=== PATIENT | male | born 1960 | race Caucasian/White ===

== ENCOUNTER 2018-08-29 08:00 | Day surgery (SDC) | payer OTHER, SELFPAY ==
--- NOTE | 2018-08-22 13:48 | PM.PREOP ---
Pre-operative Note Interval Note History & Physical reviewed/Exam performed by Physician: Yes Changes to H&P: No
--- NOTE | 2018-08-22 13:48 | PM.OP.1 ---
Operative Date/Time/Diagnoses Date of procedure: 08/29/18 Time of procedure: 08:45 Procedure & Clinicians Procedure: Preoperative diagnoses: 1. Cataract surgery with higher risk due to previous vitrectomy. #. Signifcant nuclear sclerotic and cortical cataract . 2. Previous posterior vitrectomy for retinal detachment. Postoperative diagnoses: 1. Caratact surgery with placement of a posterior chamber intraocular lens implant. Surgeon: Eveline Ward MD Complications: none Specimen: None Implant: ZCBOO+16.0 Blood loss: None Anesthesia: Retrobulbar with monitored standby. Description of procedure: Dictated by: Eveline Ward MD Copy to: [facility] Post operative diagnoses: 1. Cataract removed with with placement of a posterior chamber intraocular lens. Procedure: Phacoemulsification with posterior chamber intraocular lens implant Surgeon: Eveline Ward MD Blood loss: None Anesthesia: Retrobulbar with monitored standby Description of procedure: Patient has presented with decreased vision due to cataract which is affecting activities of daily living. The patient wants surgery to improve vision. This cataract has advanced since recent retinal detachment surgery with posterior vitrectomy. He probably had a macula off detachment at that time. 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 He would like a distance implant. The patient was taken to the operating room and given IV sedation. A retrobulbar block consisting of 6 cc of 2% xylocaine without epinephrine mixed half and half with 0.5% Marcaine with 1 cc of hyaluronidase added is placed between the medial and lateral 1/3 of the inferior orbital rim. Lid akinesia is obtain with 1% xylocaine with epinephrine infiltrated along the lid margin. The eye is manually massaged for 30 sec, prepped using Betadine solution, and draped in the usual sterile fashion. Temporal approach was made, a 1 mm side-port incision was performed 90 degrees from the planned corneal wound. Phenylephrine 1.5% mixed with 1% xylocaine 0.2 cc was placed into the anterior chamber. A good reflex was present and no dye was used.. Viscoat followed by Pratibha was then placed. A 2.6 mm clear incision with a 2.6 mm blade was placed. A 360 degree capsulorrhexis style capsulotomy was then performed with a cystitome needle on a Healon. Hydrodelineation and hydrodissection were performed. the lens prolapsed through the anterior capsulorrhexis and was left above the capsule for phacoemulsification. The phacoemulsification unit is introduced, and sculpting used to groove the central lens. It is then removed in chopping mode. Epi nucleus is removed with epinuclear mode and irrigation aspiration was used to remove the peripheral cortex. The posterior capsule is polished. A small posterior plaque was left in position in case it was posterior polar. The intraocular lens is selected, inspected, power confirmed, and placed in the posterior chamber. The pupil was constricted with Miostat. The wound was stromally hydrated and tested for leaks, there was none and was left sutureless. Vigamox 0.1 cc was placed into the anterior chamber. Kenalog 0.2 cc was placed in the superior subconjunctival space. A drop of antibiotic and was placed and the eye was patched and shielded. The patient was stable and returned to the recovery room in excellent condition. Dictated by: Eveline Ward MD Copy to: [facility]
--- NOTE | 2018-08-22 13:51 | P.OP_ITS ---
Operative Date/Time/Diagnoses Date of procedure: 08/29/18 Time of procedure: 08:45 Procedure & Clinicians Procedure: Preoperative diagnoses: 1. Cataract surgery with higher risk due to previous vitrectomy. #. Signifcant nuclear sclerotic and cortical cataract . 2. Previous posterior vitrectomy for retinal detachment. Postoperative diagnoses: 1. Caratact surgery with placement of a posterior chamber intraocular lens implant. Surgeon: Eveline Ward MD Complications: none Specimen: None Implant: ZCBOO+16.0 Blood loss: None Anesthesia: Retrobulbar with monitored standby. Description of procedure: Dictated by: Eveline Ward MD Copy to: [facility] Post operative diagnoses: 1. Cataract removed with with placement of a posterior chamber intraocular lens. Procedure: Phacoemulsification with posterior chamber intraocular lens implant Surgeon: Eveline Ward MD Blood loss: None Anesthesia: Retrobulbar with monitored standby Description of procedure: Patient has presented with decreased vision due to cataract which is affecting activities of daily living. The patient wants surgery to improve vision. This cataract has advanced since recent retinal detachment surgery with posterior vitrectomy. He probably had a macula off detachment at that time. 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 He would like a distance implant. The patient was taken to the operating room and given IV sedation. A retrobulbar block consisting of 6 cc of 2% xylocaine without epinephrine mixed half and half with 0.5% Marcaine with 1 cc of hyaluronidase added is placed between the medial and lateral 1/3 of the inferior orbital rim. Lid akinesia is obtain with 1% xylocaine with epinephrine infiltrated along the lid margin. The eye is manually massaged for 30 sec, prepped using Betadine solution, and draped in the usual sterile fashion. Temporal approach was made, a 1 mm side-port incision was performed 90 degrees from the planned corneal wound. Phenylephrine 1.5% mixed with 1% xylocaine 0.2 cc was placed into the anterior chamber. A good reflex was present and no dye was used.. Viscoat followed by Pratibha was then placed. A 2.6 mm clear incision with a 2.6 mm blade was placed. A 360 degree capsulorrhexis style capsulotomy was then performed with a cystitome needle on a Healon. Hydrodelineation and hydrodissection were performed. the lens prolapsed through the anterior capsulo rrhexis and was left above the capsule for phacoemulsification. The phacoemulsification unit is introduced, and sculpting used to groove the central lens. It is then removed in chopping mode. Epi nucleus is removed with epinuclear mode and irrigation aspiration was used to remove the peripheral cortex. The posterior capsule is polished. A small posterior plaque was left in position in case it was posterior polar. The intraocular lens is selected, inspected, power confirmed, and placed in the posterior chamber. The pupil was constricted with Miostat. The wound was stromally hydrated and tested for leaks, there was none and was left sutureless. Vigamox 0.1 cc was placed into the anterior chamber. Kenalog 0.2 cc was placed in the superior subconjunctival space. A drop of antibiotic and was placed and the eye was patched and shielded. The patient was stable and returned to the recovery room in excellent condition. Dictated by: Eveline Ward MD Copy to: [facility]
[2018-08-29 08:20] VITALS: BP 130/80; PULSE 57; RESP 20; TEMP 36.2; O2SAT 96
[2018-08-29 08:25] VITALS: BMI 27.3
[2018-08-29] MEDS: PROPARACAINE 0.5% OPHTH SOL 2 DROPS EYE-OP (08:25)
[2018-08-29] MEDS: CATARACT EYE COMPOUND (10 DROPS/SYRINGE) 3 DROPS EYE-OP (08:30)
[2018-08-29] MEDS: HYALURONATE SODIUM 10 MG/ML SYRINGE INJ (10:05)
[2018-08-29] MEDS: LIDOCAINE 1% W/EPI INJ 20 ML INJ (10:05)
[2018-08-29] MEDS: BALANCED SALT IRRIG SOLN NO.2 15 ML IRR (10:05)
[2018-08-29] MEDS: CHONDROIDTIN/SOD HYALURONATE 1.05 ML SYRINGE INTRAOCULA (10:05)
[2018-08-29] MEDS: CARBACHOL 1.5 ML VIAL INJ (10:05)
[2018-08-29] MEDS: OFLOXACIN 0.3% OPHTH 5 ML 2 DROPS EYE-LEFT (10:06)
[2018-08-29] MEDS: MOXIFLOXACIN OPHTH DROPS 3 ML BOTTLE 2 DROPS INJ (10:06)
[2018-08-29] MEDS: NEOMYCIN/POLY/DEX OPHTH OINT 1 APPLIC EYE-LEFT (10:06)
[2018-08-29] MEDS: PHENYLEPHRINE/LIDOCAINE VIAL (OR) 0.2 ML EYE-OP (10:07)
[2018-08-29] MEDS: TRIAMCINOLONE 50 MG/5 ML VIAL INJ (10:07)
[2018-08-29] MEDS: BALANCED SALT IRRIG SOLN NO.2 500 ML, EPINEPHrine 1 MG IRR (10:08)
[2018-08-29] MEDS: LIDOCAINE 2% 4 ML, BUPIVACAINE 0.5% (PF) 4 ML, HYALURONIDASE 150 UNIT INJ (10:09)
[2018-08-29 10:44] VITALS: BP 127/81; PULSE 63; RESP 16; TEMP 36.7; O2SAT 97
== END 2018-08-29 10:50 | disposition home or self-care (01) ==
LOC: OR 08:03
PROVIDERS: Family Provider Family Medicine; PCP Family Medicine; Visit Provider Ophthalmology
DX: H25.812 Combined forms of age-related cataract, left eye (principal); E78.5 Hyperlipidemia, unspecified
CPT/HCPCS: J0171; J2704; J3301; J3470

== ENCOUNTER 2018-12-26 06:52 | Day surgery (SDC) | payer OTHER, SELFPAY ==
--- NOTE | 2018-12-22 18:39 | PM.PREOP ---
Pre-operative Note Interval Note History & Physical reviewed/Exam performed by Physician: Yes Changes to H&P: No
--- NOTE | 2018-12-22 18:41 | P.OP_ITS ---
Operative Date/Time/Diagnoses Date of procedure: 12/26/18 Time of procedure: 07:45 Procedure & Clinicians Procedure: Preoperative diagnoses: 1. Right nuclear sclerotic and cortical cataract. 2. Treated right retinal tear. Postoperative diagnoses: 1. Cataract removed by phacoemulsification with placement of posterior chamber intraocular lens. Procedure: Phacoemulsification with posterior chamber intraocular lens implant Surgeon: Eveline Ward MD Complications: None Specimen: None Implant: ZCBOO+17.5 Blood loss: None Anesthesia: Retrobulbar with monitored standby Description of procedure: Patient presents with a complaint of decreased vision due to significant nuclear sclerotic and cortical cataract which is affecting activities of daily living. 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 The patient was taken to the operating room and given IV sedation. A retrobulbar block consisting of 6 cc of 2% xylocaine without epinephrine mixed half and half with 0.5% Marcaine with 1 cc of hyaluronidase added is placed between the medial and lateral 1/3 of the inferior orbital rim. Lid akinesia is obtain with 1% xylocaine with epinephrine infiltrated along the lid margin. The eye is manually massaged for 30 sec, prepped using Betadine solution, and draped in the usual sterile fashion. Temporal approach was made, a 1 mm side-port incision was made 90? from the proposed clear corneal incision position. Phenylephrine 1.5% mixed with 1% xylocaine 0.2 cc was placed into the anterior chamber. Viscoat followed by Pratibha was then placed. A 2.6 mm clear incision with a 2.6 mm blade was placed. A 360 degree capsulorrhexis style capsulotomy was then performed with a cys titome needle on a Healon. Hydrodelineation and hydrodissection were performed. The phacoemulsification unit is introduced, and sculpting notice used to groove the central lens. It is then removed in chopping mode. Epi nucleus is removed with epinuclear mode and irrigation aspiration was used to remove the peripheral cortex. The posterior capsule is polished. The intraocular lens is selected, inspected, power confirmed, and placed in the posterior chamber. The pupil was constricted with Miostat.. The wound was stromally hydrated and tested for leaks, there was none and it was left sutureless. Vigamox 0.1 cc was placed into the anterior chamber. Kenalog 0.2 cc was placed in the superior subconjunctival space. A drop of antibiotic and was placed and the eye was patched and shielded. The patient was stable and returned to the recovery room in excellent condition. Dictated by: Eveline Ward MD Copy to: [facility]
[2018-12-26 07:07] VITALS: BP 113/71; PULSE 54; RESP 15; TEMP 36.4; O2SAT 95; BMI 28.0
[2018-12-26] MEDS: PROPARACAINE 0.5% OPHTH SOL 2 DROPS EYE-OP (07:20)
[2018-12-26] MEDS: CATARACT EYE COMPOUND (10 DROPS/SYRINGE) 3 DROPS EYE-OP (07:22)
--- NOTE | 2018-12-26 07:58 | SUR.OPER ---
Pt late in a room, medications were not available, 2nd day of PIXES live
[2018-12-26] MEDS: CARBACHOL 1.5 ML VIAL INJ (08:13)
[2018-12-26] MEDS: BALANCED SALT IRRIG SOLN NO.2 15 ML IRR (08:13)
[2018-12-26] MEDS: CHONDROIDTIN/SOD HYALURONATE 1.05 ML SYRINGE INTRAOCULA (08:13)
[2018-12-26] MEDS: HYALURONATE SODIUM 10 MG/ML SYRINGE INJ (08:14)
[2018-12-26] MEDS: LIDOCAINE 1% W/EPI INJ 20 ML INJ (08:14)
[2018-12-26] MEDS: MOXIFLOXACIN OPHTH DROPS 3 ML BOTTLE 2 DROPS INJ (08:14)
[2018-12-26] MEDS: NEOMYCIN/POLY/DEX OPHTH OINT 1 APPLIC EYE-RIGHT (08:15)
[2018-12-26] MEDS: PHENYLEPHRINE/LIDOCAINE VIAL (OR) 0.2 ML EYE-OP (08:16)
[2018-12-26] MEDS: TRIAMCINOLONE 50 MG/5 ML VIAL INJ (08:17)
[2018-12-26] MEDS: BALANCED SALT IRRIG SOLN NO.2 500 ML, EPINEPHrine 1 MG IRR (08:17)
[2018-12-26] MEDS: LIDOCAINE 2% 4 ML, BUPIVACAINE 0.5% (PF) 4 ML, HYALURONIDASE 150 UNIT INJ (08:18)
[2018-12-26 08:49] VITALS: BP 110/66; PULSE 49; RESP 16; TEMP 36.9; O2SAT 100
== END 2018-12-26 08:57 | disposition home or self-care (01) ==
LOC: OR 06:53
PROVIDERS: Family Provider Family Medicine; PCP Family Medicine; Visit Provider Ophthalmology
PROC: (CPT 66984; principal; 2018-12-26 07:45)
DX: H25.811 Combined forms of age-related cataract, right eye (principal)
CPT/HCPCS: 66984; J0171; J2704; J3301; J3470

== ENCOUNTER → 2020-02-07 08:11 | Outpatient (CLI) | payer OTHER, SELFPAY ==
[2020-02-10 09:43] LABS: COVID19 Sendout Not Detected (Not Detect)
== END ==
PROVIDERS: Family Provider Family Medicine; PCP Family Medicine; Visit Provider Physician Assistant
DX: Z11.59 Encounter for screening for other viral diseases (principal)
CPT/HCPCS: 87635

== ENCOUNTER 2020-02-10 14:10 | Day surgery (SDC) | payer OTHER, SELFPAY ==
--- NOTE | 2020-02-10 12:30 | P.HP_ITS ---
History of Present Illness History of Present Illness Date Patient Seen: 02/10/20 Chief complaint: SDC Narrative: 59 Years Old Male seen today for consideration of a screening colonoscopy. Last colonoscopy on 05/20/2010 was normal. There have been no lower GI symptoms suggesting disease such as change in bowel habits, bleeding, abdominal pain or anemia. There's been no family history of colon cancer or colon polyps. Overall health issues have been stable, including no major cardiac events for at least 6 weeks. Past Medical History: Retinal detachment with break, right, and left Chondrodermatitis nodularis helicis, right ELEVATED BP READING WITHOUT DX HYPERTENSION HYPERLIPIDEMIA Skin neoplasm, uncertain behavio Actinic keratoses Past Surgical History: Vasectomy Proliance Retina- Right eye lasersurgery- Horseshoe tear 05/2017 Left eye laser surgery- Detached retina 12/2017 Left Cataract (08/2018) Right Catarct (11/2018) Family History: CAD (mom 42) macular degeneration (Mom) Hyperlipidemia (Mom and Dad) Hypertension (Mom) [place] (Dad at 69) CABG non-hodgkins lymphoma (sister) Mom- May 2017- Complication from CHF Social History: Marital Status: Children: Callum (06/25/96), Rodriguez (02/19/93) 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 [employer] Household Members: Sarah Beth (59) Education: 17 years 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 Patient History Family & Social History Social History: household members spouse Meds Home Medications and Allergies Home Medications Medication Instructions Recorded Confirmed Type aspirin 81 mg PO DAILY #0 05/12/12 02/10/20 History atorvastatin [Lipitor] 40 mg PO HS #0 05/12/12 02/10/20 History Allergies Allergy/AdvReac Type Severity Reaction Status Date / Time No Known Drug Allergies Allergy Verified 02/10/20 14:25 Review of Systems Review of Systems ROS: Yes All systems reviewed with the patient and are negative except as otherwise documented Exam Narrative Exam Narrative: GENERAL: Alert and oriented, appearing stated age and in no acute distress. HEENT: Head normocephalic/atraumatic. Pupils equal, round, and reactive to light and accomodation. Extraocular muscles intact. Tympanic membranes clear. Nasal mucosa moist, septum midline. Oral mucosa moist, no lesions. Neck soft and supple, no lymphadenopathy. LUNGS: Clear to ausculation bilaterally, no wheezes, rhonchi or rales. CV: Normal S1 and S2 with regular rate and rhythm, no audible murmurs, rubs or gallops. ABDOMEN: Soft, non-tender, non-distended, no organomegaly. Positive bowel sounds. EXTREMITIES: No clubbing, cyanosis, or edema. NEURO: Cranial nerves II through XII grossly intact, no focal deficits. PSYCH: Alert and oriented x 3. SKIN: No concerning lesions. Assessment & Plan Assessment & Plan narrative: 1. Screening for colon cancer Plan for colonoscopy. The nature and character of the procedure as well as anticipated results were discussed. The possibility of not completing the procedure was also discussed. Possible complications including aspiration pneumonia, bleeding, perforation and reaction to medications either for sedation or preparation and missed lesions were discussed. Questions were answered and proceeding to the colonoscopy was elected. Informed consent signed. I sincerely appreciate the referral allowing me to participate in this patient's care. Please contact me with any questions or concerns.
--- NOTE | 2020-02-10 12:32 | PM.OP.ENDO ---
Operative Date/Time/Diagnoses Date of procedure: 02/10/20 Procedure Notes SCOAP/Timeout: 3:45 p.m. Procedure in detail: ENDOSCOPIST: Trinidad Duarte MD Sedation RN: Sandra Franklin RN Sedation start time: 3:46 p.m. Sedation end time: 4:04 p.m. PROCEDURE: Colonoscopy INDICATIONS: 1. Screening for colon cancer MEDICATION: Levsin 0.125 mg sublingual, incremental doses of Versed and fentanyl until appropriate level sedation achieved. ASA CLASS: 2 CECAL WITHDRAWAL TIME: 9 minutes COMPLICATIONS: None. EXTENT OF PROCEDURE: Cecum. QUALITY OF PREP: Good with portions of liquid stool. PROCEDURE: Prior to insertion of the colonoscope, a digital rectal examination was accomplished with circumferential palpation of the distal rectal mucosa without significant findings being noted. The high-definition pediatric colonoscope was passed into the rectum in the usual fashion and advanced over to the cecum without difficulty. The ileocecal valve, appendiceal stoma, and medial wall all could be inspected and no abnormalities were seen. ASCENDING COLON: As the colonoscope was withdrawn, care was taken to expose and inspect the haustral folds no abnormalities were seen. HEPATIC FLEXURE: Normal, no polyps, diverticula or other abnormalities. TRANSVERSE COLON: Normal, no polyps, diverticula or other abnormalities. DESCENDING COLON: Normal, no polyps, diverticula or other abnormalities. SIGMOID COLON: Normal, no polyps, diverticula or other abnormalities. RECTUM: Normal. J maneuver was produced. There was no significant perianal disease. The J maneuver was broken. The remainder of the rectum was inspected and there was no external hemorrhoid disease. The scope was withdrawn. IMPRESSION: 1. Normal colonoscopy PLAN: 1. Repeat colonoscopy in 10 years. The possibility of a missed lesion including a malignancy has been discussed with the patient previously. Potential alarm symptoms have been discussed and should be reported immediately.
[2020-02-10 14:31] VITALS: BMI 26.6
[2020-02-10 14:35] VITALS: BP 133/86; PULSE 66; RESP 16; TEMP 36.3; O2SAT 97
[2020-02-10] MEDS: HYOSCYAMINE 0.125 MG TABLET PO (14:44)
[2020-02-10] MEDS: LACTATED RINGERS 1,000 ML 200 ML IV (14:44)
[2020-02-10] MEDS: MIDAZOLAM 5 MG/5 ML VIAL IV (15:51)
[2020-02-10] MEDS: fentaNYL 250 MCG/5 ML INJ IV (15:53)
[2020-02-10 16:09] VITALS: BP 134/74; PULSE 57; RESP 11; TEMP 37.2; O2SAT 96
[2020-02-10 16:13] VITALS: BP 131/80; PULSE 72; RESP 20; TEMP 36.7; O2SAT 96
== END 2020-02-10 16:36 | disposition home or self-care (01) ==
PROVIDERS: Family Provider Family Medicine; PCP Family Medicine; Referring Provider Family Medicine; Visit Provider Student in an Organized Health Care Education/Training Program
PROC: 0DJD8ZZ Inspection of Lower Intestinal Tract, Via Natural or Artificial Opening Endoscopic (ICD-10-PCS; CPT 45378; principal; 2020-02-10 15:15)
DX: Z12.11 Encounter for screening for malignant neoplasm of colon (principal)
CPT/HCPCS: 45378; J2250; J3010

== ENCOUNTER → 2022-09-29 09:12 | Outpatient (CLI) | payer OTHER, SELFPAY ==
--- NOTE | 2022-09-29 | DI.CT.S_ITS ---
PROCEDURE: CT KIDNEY URETER BLADDER (KUB) INDICATIONS: Asymptomatic microscopic hematuria TECHNIQUE: Axial sections were acquired from the lung bases to the pubic symphysis. Coronal and sagittal reformats were performed. For radiation dose reduction, the following was used: automated exposure control, adjustment of mA and/or kV according to patient size. COMPARISON: None. FINDINGS: Image quality: Excellent. Lung bases: Unremarkable. Heart: No significant findings. URINARY: Right Kidney: No stones or hydronephrosis. Right Ureter: No hydroureter. Left Kidney: No stones or hydronephrosis. Left Ureter: No hydroureter. Bladder: Diffuse thickening of the bladder wall. No stones. ABDOMEN: Liver: Unremarkable. Gallbladder: Unremarkable. Biliary ducts: Unremarkable. Pancreas: Unremarkable. Spleen: Unremarkable. Adrenal Glands: Unremarkable. Stomach and Bowel: Stomach, small bowel loops, and colon are unremarkable. Peritoneum: No abnormal intraperitoneal fluid. No free air. Ventral Wall: No hernia. Abdominal Nodes: No enlarged retroperitoneal or mesenteric lymph nodes. Vessels: Aorta and inferior vena cava are normal in size. PELVIS: Pelvic Organs: Unremarkable. Pelvic Nodes: Unremarkable. Miscellaneous: No inguinal hernias are seen. Bones: Unremarkable. IMPRESSION: No renal stones or hydronephrosis. Bladder is decompressed, limiting evaluation. Dictated by: Humberto Carballo M.D. on 09/29/2022 at 10:02 Approved by: Humberto Carballo M.D. on 09/29/2022 at 10:06
== END ==
PROVIDERS: Family Provider Family Medicine; PCP Family Medicine; Referring Provider Family Medicine; Visit Provider Family Medicine
DX: R31.21 Asymptomatic microscopic hematuria (principal)
CPT/HCPCS: 74176

== ENCOUNTER → 2023-03-08 10:01 | Outpatient (CLI) | payer OTHER, SELFPAY ==
--- NOTE | 2023-03-08 10:08 | DI.CT.S_ITS ---
PROCEDURE: CT IVP A/P W/WO INDICATIONS: Other microscopic hematuria TECHNIQUE: Optional 5 mm thick noncontrast images acquired from the diaphragm to the symphysis pubis. After the administration of intravenous contrast, 5 mm thick images acquired from the diaphragm to the symphysis pubis after a 10-minute delay. 2 mm thick coronal and sagittal reformats were then performed of the kidneys and ureters. For radiation dose reduction, the following was used: automated exposure control, adjustment of mA and/or kV according to patient size. COMPARISON: [facility], CT, CT KIDNEY URETER BLADDER (KUB), 09/29/2022, 9:21. FINDINGS: Image quality: Excellent. Lung bases: Lung bases are clear. Heart size is normal. Urinary system: Both kidneys are normal in size, without hydronephrosis or nephrolithiasis on pre-contrast images. No perinephric fat stranding. There is normal bilateral renal enhancement. Renal calyces appear normal in morphology when filled with contrast. 2.2 cm partially exophytic right lower pole cyst. Opacified portions of both ureters demonstrate normal caliber. The bladder is under distended. The wall thickness is appropriate given under distension. The prostate gland is enlarged and indents on the base of bladder. No visible intraluminal or bladder wall abnormalities. Other solid organs: Liver is normal in size and enhancement. Gallbladder appears normal . Biliary system is non dilated. Pancreas enhances normally. Spleen is normal in size and enhancement. No adrenal nodules. Peritoneum and bowel: Stomach and small bowel loops are normal caliber. Normal appendix. Occasional colonic diverticulosis. No free fluid or free air. Nodes and vessels: No retroperitoneal or mesenteric adenopathy by size criteria. Aorta and inferior vena cava are normal in size. Abdominal wall: No ventral hernias. Pelvis: No suspicious mass, adenopathy, or inguinal hernia. Vasectomy changes. Bones: No suspicious bony lesions. No vertebral body compression fractures. IMPRESSION: 1. Prostatomegaly. 2. No urinary calcifications, soft tissue masses, or evidence of obstructive uropathy. 3. Incidental note of simple right renal cyst. Dictated by: Inessa Butler M.D. on 03/08/2023 at 14:26 Approved by: Inessa Butler M.D. on 03/08/2023 at 14:34
== END ==
PROVIDERS: Family Provider Family Medicine; PCP Family Medicine; Referring Provider Family Medicine; Visit Provider Family Medicine
DX: R31.29 Other microscopic hematuria (principal); N40.0 Benign prostatic hyperplasia without lower urinary tract symptoms; N28.1 Cyst of kidney, acquired
CPT/HCPCS: 74178; Q9967

== ENCOUNTER 2024-02-28 06:54 | Day surgery (SDC) | payer OTHER, SELFPAY ==
[2024-02-26 07:26] VITALS: BMI 27.3
--- NOTE | 2024-02-27 15:38 | PM.HP.1 ---
History of Present Illness History of Present Illness Date Patient Seen: 02/28/24 Time Patient Seen: 08:36 [place] [facility] [place]: 63M here for bilateral inguinal hernia repair. No interval change in health. [facility] Medical History (Updated 02/28/24 @ 08:38 by Slick Prado MD) History of epididymitis Benign prostatic hyperplasia Secondhand smoke exposure Lower urinary tract symptoms Renal cyst, right Asymptomatic microscopic hematuria Surgical History History of eye surgery Social History household members: spouse Smoking Status: Never smoker Meds Home Medications and Allergies Home Medications Medication Instructions Recorded Confirmed Type aspirin 81 mg tablet,delayed 81 mg PO DAILY ##0 05/12/12 02/28/24 History release atorvastatin 40 mg tablet (Lipitor) 40 mg PO HS ##0 05/12/12 02/28/24 History Allergies Allergy/AdvReac Type Severity Reaction Status Date / Time No Known Drug Allergies Allergy Verified 02/28/24 07:41 Exam Narrative Exam Narrative: General adult man alert oriented no acute distress Chest nonlabored respiration Extremities warm well perfused Assessment & Plan Assessment and plan (1) Bilateral inguinal hernia: Problem details: 63M here for elective laparoscopic bilateral inguinal hernia repair. Overview of the operation and its surgical risk were again reviewed including but not limited to hemorrhage, infection reoccurrence reviewed. He provides his consent to proceed. Qualifiers: Obstruction and gangrene presence: without obstruction or gangrene Recurrence: non-recurrent Qualified Code(s): K40.20 - Bilateral inguinal hernia, without obstruction or gangrene, not specified as recurrent Status: Acute Time-Based Coding :: [TOTAL MINUTES] spent with patient and on the chart (including review of chart, obtaining history, exam, reviewing outside data, placing orders, documenting exam and treatment plan, and counseling patient) on [DATE].
[2024-02-28 07:43] VITALS: BP 146/83; PULSE 59; RESP 16; TEMP 36.2; O2SAT 99; BMI 27.3
[2024-02-28] MEDS: LACTATED RINGERS 1,000 ML 21 ML IV (07:50)
[2024-02-28] MEDS: CEFAZOLIN 2 GM/100 ML PREMIX 100 ML IV (08:48)
--- NOTE | 2024-02-28 09:01 | SUR.OPER ---
Supine on padded OR bed, head on pillow, arms padded and tucked at sides, legs uncrossed, safety belt at thigh, tape over blanket over lower legs .
[2024-02-28] MEDS: BUPIVACAINE 0.25% (PF) VIAL 30 ML INJ (09:08)
--- NOTE | 2024-02-28 09:41 | PM.OP.1 ---
Operative Date/Time/Diagnoses Date of procedure: 02/28/24 Time of procedure: 09:41 Pre-op diagnosis: Bilateral inguinal hernia Post-op diagnosis: other (Right inguinal hernia) Procedure & Clinicians Procedure: Laparoscopic repair of right inguinal hernia Same procedure as scheduled: Yes Indications: Symptomatic reducible inguinal hernia Surgeon: Slick Prado [employer] Consultant: Lisandro Lee Anesthesia Type: General Operative Notes Findings: Right direct inguinal hernia and small cord lipoma. No left inguinal hernia. Specimen(s): none sent Estimated Blood Loss (mL): 10 Procedure in detail: The patient was brought to the operating room and placed supine on the table. Bilateral sequential compression devices were applied. General anesthesia was induced and they were intubated with an endotracheal tube. A angulo cath was placed in sterile fashion. They received 2 g Ancef prior to skin incision. They were prepped and draped in sterile fashion. A time out was performed to ensure the correct patient, procedure and necessary equipment within the operating room. The skin was infiltrated with 0.25% bupivicaine. A 1 cm supra umbilical midline incision was made. The fascia was sharply incised and the abdomen entered traumatically. A 10mm balloon port was placed and pneumoperitoneum was established at 15mm Hg. Inspection of the abdomen demonstrated no evidence of injury upon entry. Two 5 mm ports were then placed under direct visualization in the right and left lower quadrant lateral to the rectus muscle. A right direct hernia was observed. The peritoneum 4 cm superior to the deep inguinal ring between the medial umbilical ligament and the anterior superior iliac spine was incised. The medial preperitoneal dissection was carried out into the space of Retzius bluntly, the bladder was swept inferiorly, the pubis and Gilmer's ligament were identified. Next attention was turned towards the lateral aspect of the peritoneal flap. The preperitoneal fat with the testicular vessels was carefully dissected off the inferior peritoneal flap. The cord was carefully inspected there was no evidence of indirect defect or cord lipoma. The attachements to the direct hernia sac were divided and the direct defect was reduced. A large Bard 3D Max mesh was then placed into the abdomen and positioned such that the myopectineal orifice was completely covered with good overlap on all sides. The peritoneal flap was then repositioned back to its original position and a running V lock suture was used to close the peritoneum such that no bowel could herniate into the preperitoneal space. The area was examined for hemostasis. We examined the left inguinal region carefully. There were some attachments between the sigmoid colon in the abdominal wall which were taken down sharply and allowed us to entirely visualize the myopectineal orifice and there was no findings of a left inguinal hernia. The 5mm trocars were removed under direct visualization and pneumoperitoneum was deflated through the umbilical trocar, The fascia at the umbilicus was closed with 0-Vicryl in figure of 8 fashion, skin closed with 4-0 Monocyl followed by Dermabond. The sponge and instrument count at the end of the case was correct. Both testicles were entirely within the scrotum at the end of the case. The patient emerged from anesthsia was extubated and transferred to recovery in stable condition. Complications: none Post-operative Condition: stable Disposition: same day surgery
[2024-02-28 09:52] VITALS: BP 150/89; PULSE 63; RESP 17; TEMP 36.4; O2SAT 100
[2024-02-28 09:57] VITALS: BP 133/80; PULSE 57; RESP 18; TEMP 36.4; O2SAT 99
[2024-02-28 10:02] VITALS: BP 155/84; PULSE 56; RESP 12; TEMP 36.3; O2SAT 99
[2024-02-28 10:09] VITALS: BP 138/86; PULSE 53; RESP 15; O2SAT 97
== END 2024-02-28 10:45 | disposition home or self-care (01) ==
PROVIDERS: Family Provider Family Medicine; PCP Family Medicine; Referring Provider Surgery; Visit Provider Surgery
PROC: 0YQ54ZZ Repair Right Inguinal Region, Percutaneous Endoscopic Approach (ICD-10-PCS; CPT 49650; principal; 2024-02-28 08:45)
DX: K40.90 Unilateral inguinal hernia, without obstruction or gangrene, not specified as recurrent (principal); D17.6 Benign lipomatous neoplasm of spermatic cord
CPT/HCPCS: 49650; 82962; J0690; J1100; J1170; J2250; J2405; J2704; J3010; J3490

== ENCOUNTER → 2024-08-22 10:45 | Outpatient (CLI) | payer OTHER, SELFPAY ==
[2024-08-22 13:02] LABS: Prostate Specific Antigen Scrn 1.55 ng/mL (0.1-4.0)
== END ==
PROVIDERS: Urology; Family Provider Family Medicine; PCP Family Medicine; Referring Provider Family Medicine; Visit Provider Family Medicine
DX: Z12.5 Encounter for screening for malignant neoplasm of prostate (principal)
CPT/HCPCS: 36415; G0103